=== PATIENT | female | born 1965 | race Caucasian/White ===

== ENCOUNTER 2017-01-29 10:56 | Emergency (ER) | payer BC ==
[2017-01-29 11:02] VITALS: TEMP 98.4; O2SAT 95
--- NOTE | 2017-01-29 11:10 | CPEKG ---
Heart Rate: 84 RR Interval: 714 P-R Interval: 148 QRSD Interval: 72 QT Interval: 356 QTC Interval: 421 P [place]: 25 QRS [place]: 25 T Wave [place]: -5 EKG Severity - BORDERLINE ECG - EKG Impression: SINUS RHYTHM EKG Impression: BORDERLINE T ABNORMALITIES, INFERIOR LEADS Electronically Signed By: Alexandro Pelaez 29-Jan-2017 14:15:25
[2017-01-29 11:27] LABS: % IMMATURE GRANULYOCYTES 0.4 % (0.0-1.1); ABSOLUTE IMMATURE GRANULOCYTES 0.03 10^3/uL (0.00-0.10); ADD DIFF? NO; ADD MORPH? NO; ADD SCAN? NO; ATYPICAL LYMPHOCYTE FLAG 20 (0-99); FRAGMENT RBC FLAG 10 (0-99); HEMATOCRIT 44.6 % (38.0-47.0); HEMOGLOBIN 15.1 g/dL (12.6-16.3); LEFT SHIFT FLG 0 (0-99); LIPEMIA HEMOLYSIS FLAG 90 (0-99); MEAN CELL HEMOGLOBIN 28.4 pg (27.9-34.1); MEAN CELL HEMOGLOBIN CONCENTR. 33.9 g/dL (32.4-36.7); MEAN PLATELET VOLUME 10.1 fL (8.7-11.7); PLATELET CLUMPS FLAG 0 (0-99); PLATELET COUNT 330 10^3/uL (150-400); RED BLOOD CELL COUNT 5.31 10^6/uL (4.18-5.33); RED CELL DISTRIBUTION WIDTH 12.8 % (11.5-15.2)
[2017-01-29 11:42] LABS: ANION GAP 13 mEq/L (8-16); CALCIUM 9.6 mg/dL (8.5-10.4); CARBON DIOXIDE 22 mEq/l (22-31); CHLORIDE 106 mEq/L (97-110); CREATININE 0.8 mg/dL (0.6-1.0); GLOMERULAR FILTRATION RATE > 60; GLUCOSE 109 mg/dL (70-100); POTASSIUM 4.2 mEq/L (3.5-5.2); SODIUM 141 mEq/L (134-144)
--- NOTE | 2017-01-29 11:44 | EDPHY ---
H & P Stated Complaint: CP X 1 WEEK/SSURGERY 01/21 ON ARM Time Seen by Provider: 01/29/17 11:36 - Personal History LMP (Females 10-55): Hysterectomy Current Tetanus/Diphtheria Vaccine: Yes - Medical/Surgical History Hx Asthma: No Hx Chronic Respiratory Disease: No Hx Diabetes: Yes Hx Cardiac Disease: No Hx Renal Disease: No Hx Cirrhosis: No Hx Alcoholism: No Hx HIV/AIDS: No Hx Splenectomy or Spleen Trauma: No Other PMH: R ELBOW SURG - Social History Smoking Status: Never smoked Constitutional: Initial Vital Signs Temperature (C) 36.9 C 01/29/17 10:59 Heart Rate 89 01/29/17 10:59 Respiratory Rate 20 01/29/17 10:59 Blood Pressure 158/117 H 01/29/17 10:59 O2 Sat (%) 95 01/29/17 10:59 O2 Delivery Mode Room Air Allergies/Adverse Reactions: morphine Allergy (Severe, Verified 01/29/17 10:58) HALLUCINATE,VOMITS Penicillins Allergy (Unknown, Verified 01/29/17 10:58) Sulfa (Sulfonamide Antibiotics) Allergy (Unknown, Verified 01/29/17 10:58) Home Medications: Medication Instructions Recorded Albuterol [Proventil Inhaler] 1 - 2 puffs IH Q4 #1 mdi 01/29/17 Metformin HCl 01/29/17 Nexium 01/29/17 Oxycodone HCl 01/29/17 Medical Decision Making - Diagnostics Imaging Results: Imaging Impressions Chest/Thorax CTA 01/29/17 11:45 Impression: 1. No visible pulmonary embolus. 2. Minimal peribronchial thickening suggesting bronchitis/airways disease. 3. Fatty liver. 4. Additional findings as above. Findings discussed with Alexandro Pelaez M.D. on January 29, 2017 at 1303 hours. Imaging: Discussed imaging studies w/ respiratory care specialist Radiologist, I viewed and interpreted images myself ED Course/Re-evaluation: CHIEF COMPLAINT: Dyspnea, chest pain HISTORY OF PRESENT ILLNESS: The patient is a 51 y/o female arriving with her complaining of exertional shortness of breath onset this morning and nocturnal substernal chest pain for the last week. She had a right elbow surgery for tendonitis by Dr. Murillo one week ago. She has no history of blood clots. She denies other symptoms including nausea, diaphoresis, palpitations, weakness, numbness, recent illness, or recent injuries. She denies other pertinent medical history. No anticoagulants. REVIEW OF SYSTEMS: A 10 point review of systems was performed and is negative with the exception of the elements mentioned in the history of present illness. PHYSICAL EXAM: HR, BP, O2 Sat, RR. Temp noted General Appearance: Alert, well hydrated, appropriate, and non-toxic appearing. Head: Atraumatic without scalp tenderness or obvious injury Eyes: Pupils equal, round, reactive to light and accommodation, EOMI, no trauma , no injection. Nose: Atraumatic, no rhinorrhea, clear. Throat: There is no erythema or exudates, no lesions, normal tonsils, mucus membranes moist. Neck: Supple, nontender, no lymphadenopathy. Respiratory: No retractions, no distress, no wheezes, and no accessory muscle use. Lungs are clear to auscultation bilaterally. Cardiovascular: Regular rate and rhythm, no murmurs, rubs, or gallops. Good capillary refill all extremities. Gastrointestinal: Abdomen is soft, nontender, non-distended, no masses, no rebound, no guarding, no peritoneal signs. Musculoskeletal: Normal active ROM of all extremities, atraumatic. Right elbow bandaged. Neurological: Alert, appropriate, and interactive. Nonfocal neuro exam. Skin: No rashes, good turgor, no nodules on palpation. Past medical history: Tendonitis Past surgical history: Right elbow surgery by Dr. Murillo 01/21/17; hysterectomy Family history: noncontributory Social history: at bedside. DIAGNOSTICS/PROCEDURES/CRITICAL CARE TIME: The 12 lead EKG was interpreted by myself. Sinus mechanism rate 84. Isolated T wave inversion lead III and flattened T waves in aVF. See hard copy and/or "tracemaster" electronic copy for interpretation. Chest CTA: no PE, mild bronchitis DIFFERENTIAL DIAGNOSIS: The differential diagnosis for the patient's shortness of breath and hypoxemia included but was not limited to pneumonia, myocardial infarction, acute mountain sickness, high altitude pulmonary edema, congestive heart failure, and pulmonary embolus. MEDICAL DECISION MAKING: This is a 51 y/o female 1 week out from an elbow surgery who presents with a 1- day history of substernal chest pain with associated exertional shortness onset this morning. She is resting comfortably on assessment and her exam is unremarkable apart from bandaged right elbow. Her vitals are WNL. IV established and labs drawn. Initial labs show an elevated d-dimer. EKG unremarkable apart from isolated T abnormalities. Patient will require Chest CTA. She agrees with imaging. Reassessed patient and discussed work up thus far. Her chest CTA is negative for PE, but does show mild bronchitis. This is consistent with her sharp pain. She will be given an albuterol inhaler and recommended PCP follow up. She agrees with plan for discharge. Return precautions given. - Data Points Laboratory Results: Laboratory Results 01/29/17 11:20 01/29/17 11:20 01/29/17 01/29/17 01/29/17 11:20 11:20 11:20 WBC RBC Hgb Hct MCV MCH MCHC RDW Plt Count MPV Neut % (Auto) Lymph % (Auto) [place] % (Auto) Eos % (Auto) Baso % (Auto) Nucleat RBC Rel Count Absolute Neuts (auto) Absolute Lymphs (auto) Absolute Monos (auto) Absolute Eos (auto) Absolute Basos (auto) Absolute Nucleated RBC Immature Gran % Immature Gran # PT 12.4 SEC SEC (12.0-15.0) INR 0.93 (0.83-1.16) APTT 30.1 SEC SEC (23.0-38.0) D-Dimer Sodium 141 mEq/L mEq/L (134-144) Potassium 4.2 mEq/L mEq/L (3.5-5.2) Chloride 106 mEq/L mEq/L (97-110) Carbon Dioxide 22 mEq/l mEq/l (22-31) Anion Gap 13 mEq/L mEq/L (8-16) BUN 15 mg/dL mg/dL (7-23) Creatinine 0.8 mg/dL mg/dL (0.6-1.0) Estimated GFR > 60 Glucose 109 mg/dL H mg/dL (70-100) Calcium 9.6 mg/dL mg/dL (8.5-10.4) Magnesium 2.0 mg/dL mg/dL (1.6-2.3) Troponin I < 0.012 ng/mL ng/mL (0.000-0.034) NT-Pro-B Natriuret Pep 36 pg/mL pg/mL (0-125) 08/29/17 08/29/17 11:20 11:20 WBC 6.82 10^3/uL 10^3/uL (3.80-9.50) RBC 5.31 10^6/uL 10^6/uL (4.18-5.33) Hgb 15.1 g/dL g/dL (12.6-16.3) Hct 44.6 % % (38.0-47.0) MCV 84.0 fL fL (81.5-99.8) MCH 28.4 pg pg (27.9-34.1) MCHC 33.9 g/dL g/dL (32.4-36.7) RDW 12.8 % % (11.5-15.2) Plt Count 330 10^3/uL 10^3/uL (150-400) MPV 10.1 fL fL (8.7-11.7) Neut % (Auto) 59.6 % % (39.3-74.2) Lymph % (Auto) 27.0 % % (15.0-45.0) [place] % (Auto) 10.4 % % (4.5-13.0) Eos % (Auto) 1.9 % % (0.6-7.6) Baso % (Auto) 0.7 % % (0.3-1.7) Nucleat RBC Rel Count 0.0 % % (0.0-0.2) Absolute Neuts (auto) 4.06 10^3/uL 10^3/uL (1.70-6.50) Absolute Lymphs (auto) 1.84 10^3/uL 10^3/uL (1.00-3.00) Absolute Monos (auto) 0.71 10^3/uL 10^3/uL (0.30-0.80) Absolute Eos (auto) 0.13 10^3/uL 10^3/uL (0.03-0.40) Absolute Basos (auto) 0.05 10^3/uL 10^3/uL (0.02-0.10) Absolute Nucleated RBC 0.00 10^3/uL 10^3/uL (0-0.01) Immature Gran % 0.4 % % (0.0-1.1) Immature Gran # 0.03 10^3/uL 10^3/uL (0.00-0.10) PT INR APTT D-Dimer 0.62 ug/mLFEU H ug/mLFEU (0.00-0.50) Sodium Potassium Chloride Carbon Dioxide Anion Gap BUN Creatinine Estimated GFR Glucose Calcium Magnesium Troponin I NT-Pro-B Natriuret Pep Departure - Departure Disposition: Home, Routine, Self-Care Clinical Impression: Bronchitis Condition: Good Instructions: Acute Bronchitis (ED) Additional Instructions: Use inhaler as prescribed for symptoms. Follow up with your primary care provider for unimproved symptoms. Return to the ED for any worsening of condition. Referrals: Anjum Nickerson MD [Primary Care Provider] - As per Instructions Prescriptions: Albuterol [Proventil Inhaler] 1 - 2 puffs IH Q4 #1 mdi Report Scribed for: Alexandro Pelaez Report Scribed by: Luz Marina Rodriguez Date of Report: 01/29/17 Time of Report: 11:52
[2017-01-29] MEDS ORDERED: IOPAMIDOL (ISOVUE 370) 100 ML BTL IV ONE (12:06)
[2017-01-29 12:10] LABS: INR 0.93 (0.83-1.16); PROTIME(PATIENT) 12.4 SEC (12.0-15.0)
[2017-01-29 12:11] LABS: APTT 30.1 SEC (23.0-38.0)
[2017-01-29 12:22] LABS: TROPONIN I < 0.012 ng/mL (0.000-0.034)
[2017-01-29 13:49] VITALS: BP 145/101; PULSE 81; RESP 16
== END 2017-01-29 13:49 | disposition home or self-care (01) ==
DX: J40 Bronchitis, not specified as acute or chronic (principal); E11.9 Type 2 diabetes mellitus without complications; Z79.84 Long term (current) use of oral hypoglycemic drugs
CPT/HCPCS: Q9967